=== PATIENT | female | born 1940 | race Caucasian/White ===

== ENCOUNTER 2017-12-21 08:41 | Day surgery (SDC) | payer OTHER, BC ==
[~2017-12-21] VITALS: Ht 162.6 cm; Wt 82.3 kg
[~2017-12-21 08:41] MED LIST: AMOX TR-K CLV1 EAC4 PO; ARTIFICIAL TEAR15 M1 BOTH EYES; ASPIR-TRIN325 M1 PO; ATACAND32 MG PO; ATIVAN1 MG PO; Ativan PO; BUMETANIDE1 MG PO; BYSTOLIC20 MG PO; CENTRUM SILVER1 EAC3 PO; CENTRUM TABLET1 EACH PO; CHLORTHALIDONE25 MG PO; Cozaar PO; DIOVAN HCT 31 TABLE1 PO; Ecotrin PO; FEOSOL325 MG PO; Feosol PO; LEXAPRO10 MG PO; LOSARTAN POTAS100 MG PO; LOW DOSE ASPIRI81 M2 PO; METOPROLOL TART25 MG PO; MUCINEX DM1 TABLET PO; NORMODYNE,TRAN200 MG PO; NORVASC10 MG PO; Norvasc PO; PANTOPRAZOLE SO40 MG PO; PRILOSEC OTC20 M1 PO; Procardia XL,Adalat PO; Protonix PO; REFRESH TEARS15 ML BOTH EYES; SENOKOT S,PE1 TABLET PO; SPIRONOLACTONE50 MG PO; VISINE TEARS DR30 ML BOTH EYES; Vicodin,Lortab 5/500 PO; Vicodin,Norco 5/325 PO; XALATAN 0.50 DROP/2. BOTH EYES; XALATAN2.5 ML BOTH EYES; Xalatan 0.005% Ophth BOTH EYES; ZADITOR 0.100 DROP/5 BOTH EYES; ZANTAC300 MG PO; ZETIA10 MG PO
[2017-12-21 09:37] LABS: HEMATOCRIT 31.6 % (36.0-46.0); HEMOGLOBIN 10.3 G/DL (11.9-15.5); MCV 95.5 FL (83-99)
== END 2017-12-21 10:42 | disposition home or self-care (01) ==
LOC: PAIN 08:41 → SDC 09:15 → PAIN 10:42
PROVIDERS: Anesthesiology Pain Medicine
PROC: 3E0U3BZ Introduction of Anesthetic Agent into Joints, Percutaneous Approach (ICD-10-PCS; principal; 2017-12-21)
PROC: 3E0U33Z Introduction of Anti-inflammatory into Joints, Percutaneous Approach (ICD-10-PCS; principal; 2017-12-21)
DX: M53.3 Sacrococcygeal disorders, not elsewhere classified (principal); M46.1 Sacroiliitis, not elsewhere classified; M47.816 Spondylosis without myelopathy or radiculopathy, lumbar region; I11.9 Hypertensive heart disease without heart failure; F41.9 Anxiety disorder, unspecified; K21.9 Gastro-esophageal reflux disease without esophagitis; E78.5 Hyperlipidemia, unspecified; I70.1 Atherosclerosis of renal artery; I25.10 Atherosclerotic heart disease of native coronary artery without angina pectoris; Z79.82 Long term (current) use of aspirin; Z87.891 Personal history of nicotine dependence
CPT/HCPCS: 85014; 85018; J1030; J2250; J3010; S0020

== ENCOUNTER 2018-04-21 08:24 | Day surgery (SDC) | payer OTHER, BC ==
[~2018-04-21] VITALS: Ht 162.6 cm; Wt 80.7 kg
[~2018-04-21 08:24] MED LIST changes: +LOW DOSE ASPIRI81 M1 PO; -LOW DOSE ASPIRI81 M2 PO; +MOTION SICKNESS25 M4 PO; +TENEX1 MG PO; +TYLENOL EXTRA500 MG PO; +ULTRAM50 MG PO
== END 2018-04-21 10:30 | disposition home or self-care (01) ==
LOC: PAIN 08:24 → SDC 08:45 → PAIN 08:45
DX: M47.816 Spondylosis without myelopathy or radiculopathy, lumbar region (principal); M62.838 Other muscle spasm; M53.3 Sacrococcygeal disorders, not elsewhere classified; M48.061 Spinal stenosis, lumbar region without neurogenic claudication; Z88.1 Allergy status to other antibiotic agents; Z88.8 Allergy status to other drugs, medicaments and biological substances
CPT/HCPCS: J1100

== ENCOUNTER 2018-05-31 09:52 | Day surgery (SDC) | payer OTHER, BC ==
[~2018-05-31] VITALS: Ht 163.2 cm; Wt 79.8 kg
[~2018-05-31 09:52] MED LIST changes: +BUSPAR10 MG PO; +COZAAR50 MG PO; +HYGROTON25 MG PO; +INSPRA50 MG PO; -LOSARTAN POTAS100 MG PO; +VESICARE5 MG PO
== END 2018-05-31 23:35 | disposition home or self-care (01) ==
LOC: CATH 09:52
DX: I25.10 Atherosclerotic heart disease of native coronary artery without angina pectoris (principal); I25.82 Chronic total occlusion of coronary artery; I10 Essential (primary) hypertension; I70.1 Atherosclerosis of renal artery; I44.7 Left bundle-branch block, unspecified; E78.01 Familial hypercholesterolemia; I65.23 Occlusion and stenosis of bilateral carotid arteries
CPT/HCPCS: 85347; C1769; C1894; J0153; J0461; J1644; J2250; J3010; J7040